=== PATIENT | female | born 1945 | race Caucasian/White ===

== ENCOUNTER 2017-03-03 16:13 | Emergency (ER) | payer OTHER, BC ==
[2017-03-03 16:25] VITALS: BP 107/71; PULSE 110; TEMP 98.3; BMI 19.0
--- NOTE | 2017-03-03 19:29 | PDOC ---
History of Present Illness - General Chief Complaint: Pain Stated Complaint: ARM PAIN Time Seen by Provider: 03/03/17 19:15 History Source: Patient Exam Limitations: No Limitations - History of Present Illness Initial Comments: 03/03/17 19:23 71 yr female with c/o pain to her right elbow. Pt is s/p multiple arm surgeries for shattered radial head many years ago. Pt has continued drainage from the wound is currently on dicloxacilin by her PMD Dr. Marina . Pt denies fever or chills. Past History - Past Medical History Allergies/Adverse Reactions: Allergies Allergy/AdvReac Type Severity Reaction Status Date / Time No Known Allergies Allergy Verified 03/03/17 16:18 Home Medications: Ambulatory Orders No Home Medications 0 dose .ROUTE UTDICT 08/05/12 Buprenorphine HCl/Naloxone HCl [Suboxone 8 mg-2 mg Sl Tablets] 1 tablet SL ASDIR 03/03/17 Doxycycline Monohydrate [Mondoxyne Nl] 50 mg PO ASDIR 03/03/17 Naproxen [Naprosyn -] 500 mg PO BID PRN #14 tablet 03/03/17 HTN: (no meds x 1 year) Other medical history: right arm injury, causing multiple surgery - Surgical History Appendectomy: Yes - Immunization History Immunization Up to Date: Yes - Suicide/Smoking/Psychosocial Hx Smoking Status: No Smoking History: Current every day smoker Have you smoked in the past 12 months: No Number of Cigarettes Smoked Daily: 10 Information on smoking cessation initiated: No Hx Alcohol Use: No Drug/Substance Use Hx: No Substance Use Type: None *Physical Exam - Vital Signs Last Vital Signs Temp Pulse Resp BP Pulse Ox 98.3 F 110 H 20 107/71 96 03/03/17 16:18 03/03/17 16:18 03/03/17 16:18 03/03/17 16:18 03/03/17 16:18 - Physical Exam HEENT: positive: EOMI, KAYLIE, Normal ENT Inspection, TMs Normal, Pharynx Normal Neck: positive: Supple Respiratory/Chest: positive: Lungs Clear, Normal Breath Sounds Cardiovascular: positive: Regular Rhythm, Regular Rate Musculoskeletal: positive: Normal Inspection Extremity: positive: Other (right elbow with multiple surgeries/incisions. There is drainage that is yellow green from one of the sites. Pt is unable to extend right forearm, positive wrist drop, atrophy of right hand, decreased sensation in the ulnar nerve. minimal extension of digits. ) Integumentary: positive: Normal Color, Dry, Warm Neurologic: positive: Fully Oriented, Alert ED Treatment Course - RADIOLOGY Radiology Studies Ordered: Category Date Time Status ELBOW-RIGHT [RAD] Stat Radiology 03/03/17 19:20 Ordered Medical Decision Making - Medical Decision Making 03/03/17 19:27 cc: right elbow pain with drainage this is chronic pt is currently on dicloxacilin will swab the drainage and get xray toradol for pain , pt states po motirn irriates her stomach pt has a history of substance abuse is currently on suboxone. 03/03/17 19:28 pt asking for referal for ortho here in [place] will also refer to wound care clinic pt agrees with that plan *DC/Admit/Observation/Transfer Diagnosis at time of Disposition: Chronic pain Qualifiers: Chronic pain type: other chronic postprocedural pain Qualified Code(s): G89.28 - Other chronic postprocedural pain - Discharge Dispostion Disposition: HOME Condition at time of disposition: Good - Prescriptions Prescriptions: Naproxen [Naprosyn -] 500 mg PO BID PRN #14 tablet PRN Reason: Pain - Referrals Referrals: Zuhair Torres MD, MD [Primary Care Provider] - Piotr Kelly MD [Staff Physician] - - Patient Instructions Additional Instructions: follow with the wound care clinic at this [facility] call [phone] and ask for wound care clinic follow with the orthopedist for follow up continue taking the dicloxacillin
== END 2017-03-03 20:16 | disposition home or self-care (01) ==
LOC: JERFT 16:13
DX: G89.28 Other chronic postprocedural pain (principal); I10 Essential (primary) hypertension; F17.210 Nicotine dependence, cigarettes, uncomplicated; Z87.81 Personal history of (healed) traumatic fracture; Z87.898 Personal history of other specified conditions
CPT/HCPCS: 73070-TC-RT; 87070; 87186; 87205; 99281-25